=== PATIENT | female | born 1980 | race Caucasian/White ===

== ENCOUNTER 2016-08-08 00:31 | Emergency (ER) | payer OTHER ==
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
[~2016-08-08 00:31] MED LIST: ALBUTEROL17 GM INH; ASPIRIN81 M2 PO; AUGMENTIN875 MG PO; BACTRIM DS TABL1 TA1 PO; BUSPAR15 MG PO; COLACE PO; DAKIN'S MODIF1000 ML; FLEXERIL PO; HUMULIN 70/30 V10 ML SQ; HUMULIN R100 U/ML SQ; HUMULIN R100 U/ML SUBQ; HYDROCODON-ACE1 EAC9 PO; LANTUS100 U/ML SQ; LANTUS100 U/ML SUBQ; LASIX20 MG PO; LISINOPRIL10 MG PO; LO-DOSE ASPIRIN81 M1 PO; LOPID600 MG PO; LORTAB 7.5-3251 EACH PO; METFORMIN PO; METOPROLOL SUCC25 MG PO; NEURONTIN300 MG PO; NICOTINE TRANSD21 MG EXT; OMEPRAZOLE40 MG PO; PERCOCET 10/3251 TAB PO; PERCOCET 7.5-31 EACH PO; PERCOCET PO; SYMBICORT INH; [UNRECOGNIZED DRUG - OTHER] PO
== END 2016-08-08 03:20 | disposition home or self-care (01) ==
LOC: CED 00:31
DX: S39.012A Strain of muscle, fascia and tendon of lower back, initial encounter (principal); E11.9 Type 2 diabetes mellitus without complications; I10 Essential (primary) hypertension; F17.210 Nicotine dependence, cigarettes, uncomplicated; V49.40XA Driver injured in collision with unspecified motor vehicles in traffic accident, initial encounter; Y93.89 Activity, other specified; Y92.410 Unspecified street and highway as the place of occurrence of the external cause
CPT/HCPCS: 72072; 72100; 99283; 99284